=== PATIENT | female | born 1990 | race Caucasian/White ===

== ENCOUNTER 2023-01-24 03:40 | Emergency (ER) | payer MEDICARE ==
[2023-01-24] MEDS: Albuterol/Ipratropium 3.0-0.5 MG/3 ML Neb Soln NEB ONE (04:22)
[2023-01-24] MEDS: Albuterol 0.083% 2.5 MG/3 ML Neb Soln NEB ONE (05:21)
[2023-01-24] MEDS: methylPREDNISolone Sodium Succinate 125 MG/2 ML SDV IM ONE (05:25)
== END 2023-01-24 05:40 | disposition home or self-care (01) ==
LOC: KA.ED 03:40
DX: R05.1 Acute cough (principal); R06.2 Wheezing; Z88.0 Allergy status to penicillin; Z79.82 Long term (current) use of aspirin
CPT/HCPCS: 71046; 94640; 96372; 99285; J2930; J7613-GY; J7620-GY